=== PATIENT | male | born 1945 ===

== ENCOUNTER 2018-08-30 05:43 | Emergency (ER) | payer MEDICARE, BC ==
[~2018-08-30 05:43] MED LIST: ASP325 PO; ESOM20CA31 PO; LOR7.5/325 PO; METXR500 PO; TAM4 PO; VALS1TAB96 PO
--- NOTE | 2018-08-30 05:47 | ER Report ---
History and Physical Time Seen By MD: 05:45 (SATHYA WEISS DO) HPI/ROS CHIEF COMPLAINT: Dizzy HISTORY OF PRESENT ILLNESS: 73-year-old male brought in by private auto after ambulance responded to his brother's house. Patient's visiting from [place]. Patient's passed the 29th of last month. He has a history diabetes, hypertension, previous stroke, multiple joint replacements secondary to arthritis. Patient retired to bed feeling fine. Around 9:30 with some nausea. He woke up at 3 AM, grossly dizzy, falling into a closet headfirst. Patient reports no injury. Patient states he went to make coffee and ran into the wall, numerous times walking to the kitchen. He is complaining of pain of his left scapula and rating down his left arm. He has some numbness and tingling. Patient's type II diabetic on oral agent. Metformin 500 mg once daily. Patient reports his eyelids feel heavy. He feels like he wants to fall sleep. REVIEW OF SYSTEMS: Respiratory: No cough, no dyspnea. Cardiovascular: As above Gastrointestinal: No vomiting, no abdominal pain. Musculoskeletal: No back pain. (SATHYA WEISS DO) Allergies: Coded Allergies: No Known Drug Allergies (Verified , 08/30/18) Home Meds Reported Medications Metoprolol Tartrate (METOPROLOL TARTRATE) 25 Mg Tablet, PO QDAY, TAB 08/30/18 Tizanidine Hcl (TIZANIDINE HCL) 4 Mg Tablet, 4 MG PO QDAY 08/30/18 Pravastatin Sodium (PRAVASTATIN SODIUM) 10 Mg Tablet, PO QDAY 08/30/18 Metformin Hcl (Metformin Er) 500 Mg Tab.sr.24h, 500 MG PO DAILY, 0 Refills 07/08/09 Esomeprazole Mag Trihydrate (Nexium) 20 Mg Capsule.dr, 40 MG PO QDAY, 0 Refills 07/08/09 Discontinued Reported Medications Acetaminophen/Hydrocodone (Lortab 7.5/325 Mg) 7.5 Mg/325 Mg Tab, 1 - 2 TAB PO Q4H PRN, #40 0 Refills 07/13/09 Aspirin (Aspirin) 325 Mg Tab, 325 MG PO DAILY, 0 Refills 07/08/09 Valsartan/Hydrochlorothiazide (Diovan Hct 160-12.5 Mg Tab) 1 Tab Tablet, 1 TAB PO DAILY, 0 Refills 07/08/09 Tamsulosin Hcl (Flomax) 0.4 Mg Cap, 0.4 MG PO QDAY, 0 Refills 07/08/09 Past Medical/Surgical History Hyperlipidemia on, hypertension, previous CVA, type II diabetes on metformin, arthritis, status post multiple joint replacements, back surgery, pituitary adenoma removal (SATHYA WEISS DO) Reviewed Nurses Notes: Yes Old Medical Records Reviewed: Yes (SATHYA WEISS DO) Hx Smoking: Yes (X30 YRS) (SATHYA WEISS DO) Constitutional Vital Sign - Last 24 Hours 08/30/18 08/30/18 08/30/18 08/30/18 05:51 05:58 06:00 06:13 Temp 97.9 Pulse 65 67 66 Resp 15 16 B/P (MAP) 154/94 163/90 (114) Pulse Ox 93 92 94 O2 Delivery Room Air 08/30/18 08/30/18 08/30/18 06:28 06:33 07:00 Pulse 67 64 Resp 20 15 B/P (MAP) 136/79 (98) Pulse Ox 94 93 (SOLEDAD KO MD) Physical Exam General Appearance: The patient is alert, has no immediate need for airway protection and no current signs of toxicity. Vital signs stable, afebrile, pulse ox normal HEENT: Pupils equal and round no injection. TMs normal, oropharynx without redness or exudate, no facial droop Respiratory: Chest is non tender, lungs are clear to auscultation. Cardiac: regular rate and rhythm, distant heart sounds, no murmur Gastrointestinal: Abdomen is soft and non tender, no masses, bowel sounds normal. Musculoskeletal: Neck: Neck is supple and non tender. No JVD, no bruits Extremities have full range of motion and are non tender. No edema, no calf tenderness Skin: No rashes or lesions. Neuro: DIFFERENTIAL DIAGNOSIS: After history and physical exam differential diagnosis was considered for [ ] (SATHYA WEISS DO) Medical Decision Making Data Points Result Diagram: 08/30/1860108/30/18601 Laboratory Hematology Test 08/30/18 06:02 08/30/18 07:50 Red Blood Count 4.97 M/uL (4.00-5.60) Mean Corpuscular Volume 92.5 fL (80.0-96.0) Mean Corpuscular Hemoglobin 31.6 pg (26.0-33.0) Mean Corpuscular Hemoglobin Concent 34.2 g/dL (32.0-36.0) Red Cell Distribution Width 13.5 % (11.5-14.5) Mean Platelet Volume 7.6 fL (7.2-11.1) Neutrophils (%) (Auto) 51.9 % (39.4-72.5) Lymphocytes (%) (Auto) 35.5 % (17.6-49.6) Monocytes (%) (Auto) 7.1 % (4.1-12.4) Eosinophils (%) (Auto) 4.0 % (0.4-6.7) Basophils (%) (Auto) 1.5 % (0.3-1.4) Nucleated RBC Relative Count (auto) 0.1 /100WBC Neutrophils # (Auto) 2.3 K/uL (2.0-7.4) Lymphocytes # (Auto) 1.6 K/uL (1.3-3.6) Monocytes # (Auto) 0.3 K/uL (0.3-1.0) Eosinophils # (Auto) 0.2 K/uL (0.0-0.5) Basophils # (Auto) 0.1 K/uL (0.0-0.1) Nucleated RBC Absolute Count (auto) 0.00 K/uL Prothrombin Time 12.1 seconds (12.0-14.4) Prothromb Time International Ratio 0.90 Activated Partial Thromboplast Time 30 seconds (23-35) D-Dimer Quantitative (PE/DVT) 0.33 ug/ml (0-0.50) Sodium Level 139 mmol/L (137-145) Potassium Level 3.6 mmol/L (3.5-5.0) Chloride Level 99 mmol/L (98-107) Carbon Dioxide Level 30 mmol/L (22-30) Blood Urea Nitrogen 20 mg/dl (9-21) Creatinine 1.00 mg/dl (0.66-1.25) Glomerular Filtration Rate Calc > 60.0 Random Glucose 174 mg/dl (75-110) Calcium Level 9.1 mg/dl (8.4-10.2) Total Bilirubin 0.4 mg/dl (0.2-1.3) Aspartate Amino Transf (AST/SGOT) 33 U/L (0-35) Alanine Aminotransferase (ALT/SGPT) 42 U/L (0-56) Alkaline Phosphatase 88 U/L (0-126) Troponin I < 0.012 ng/ml B-Type Natriuretic Peptide 51 pg/ml (0-100) Total Protein 7.3 g/dl (6.3-8.2) Albumin 4.0 g/dl (3.5-5.0) Urine Color Yellow Urine Clarity Clear Urine pH 6.0 pH (4.8-9.5) Urine Specific Cushing 1.014 Urine Protein Negative mg/dL (NEGATIVE) Urine Glucose (UA) 50 mg/dL (NEGATIVE) Urine Ketones Negative mg/dL (NEGATIVE) Urine Blood Small (NEGATIVE) Urine Nitrite Negative (NEGATIVE) Urine Bilirubin Negative (NEGATIVE) Urine Urobilinogen Negative mg/dL (0.2-1.9) Urine Leukocyte Esterase Negative (NEGATIVE) Urine RBC 1 /HPF (0-2/HPF) Urine WBC 1 /HPF (0-5/HPF) Urine Squamous Epithelial Cells None /LPF (</=FEW) Urine Bacteria Negative /HPF (NONE-FEW) Urine Mucus Few /HPF (NONE-FEW) Chemistry Test 08/30/18 06:02 08/30/18 07:50 White Blood Count 4.5 k/uL (4.5-11.0) Red Blood Count 4.97 M/uL (4.00-5.60) Hemoglobin 15.7 g/dL (14.0-18.0) Hematocrit 46.0 % (42.0-52.0) Mean Corpuscular Volume 92.5 fL (80.0-96.0) Mean Corpuscular Hemoglobin 31.6 pg (26.0-33.0) Mean Corpuscular Hemoglobin Concent 34.2 g/dL (32.0-36.0) Red Cell Distribution Width 13.5 % (11.5-14.5) Platelet Count 180 K/uL (150-450) Mean Platelet Volume 7.6 fL (7.2-11.1) Neutrophils (%) (Auto) 51.9 % (39.4-72.5) Lymphocytes (%) (Auto) 35.5 % (17.6-49.6) Monocytes (%) (Auto) 7.1 % (4.1-12.4) Eosinophils (%) (Auto) 4.0 % (0.4-6.7) Basophils (%) (Auto) 1.5 % (0.3-1.4) Nucleated RBC Relative Count (auto) 0.1 /100WBC Neutrophils # (Auto) 2.3 K/uL (2.0-7.4) Lymphocytes # (Auto) 1.6 K/uL (1.3-3.6) Monocytes # (Auto) 0.3 K/uL (0.3-1.0) Eosinophils # (Auto) 0.2 K/uL (0.0-0.5) Basophils # (Auto) 0.1 K/uL (0.0-0.1) Nucleated RBC Absolute Count (auto) 0.00 K/uL Prothrombin Time 12.1 seconds (12.0-14.4) Prothromb Time International Ratio 0.90 Activated Partial Thromboplast Time 30 seconds (23-35) D-Dimer Quantitative (PE/DVT) 0.33 ug/ml (0-0.50) Glomerular Filtration Rate Calc > 60.0 Calcium Level 9.1 mg/dl (8.4-10.2) Total Bilirubin 0.4 mg/dl (0.2-1.3) Aspartate Amino Transf (AST/SGOT) 33 U/L (0-35) Alanine Aminotransferase (ALT/SGPT) 42 U/L (0-56) Alkaline Phosphatase 88 U/L (0-126) Troponin I < 0.012 ng/ml B-Type Natriuretic Peptide 51 pg/ml (0-100) Total Protein 7.3 g/dl (6.3-8.2) Albumin 4.0 g/dl (3.5-5.0) Urine Color Yellow Urine Clarity Clear Urine pH 6.0 pH (4.8-9.5) Urine Specific Cushing 1.014 Urine Protein Negative mg/dL (NEGATIVE) Urine Glucose (UA) 50 mg/dL (NEGATIVE) Urine Ketones Negative mg/dL (NEGATIVE) Urine Blood Small (NEGATIVE) Urine Nitrite Negative (NEGATIVE) Urine Bilirubin Negative (NEGATIVE) Urine Urobilinogen Negative mg/dL (0.2-1.9) Urine Leukocyte Esterase Negative (NEGATIVE) Urine RBC 1 /HPF (0-2/HPF) Urine WBC 1 /HPF (0-5/HPF) Urine Squamous Epithelial Cells None /LPF (</=FEW) Urine Bacteria Negative /HPF (NONE-FEW) Urine Mucus Few /HPF (NONE-FEW) Coagulation Test 08/30/18 06:02 Prothrombin Time 12.1 seconds Prothromb Time International Ratio 0.90 Activated Partial Thromboplast Time 30 seconds D-Dimer Quantitative (PE/DVT) 0.33 ug/ml Urinalysis Test 08/30/18 07:50 Urine Color Yellow Urine Clarity Clear Urine pH 6.0 pH (4.8-9.5) Urine Specific Cushing 1.014 Urine Protein Negative mg/dL (NEGATIVE) Urine Glucose (UA) 50 mg/dL (NEGATIVE) Urine Ketones Negative mg/dL (NEGATIVE) Urine Blood Small (NEGATIVE) Urine Nitrite Negative (NEGATIVE) Urine Bilirubin Negative (NEGATIVE) Urine Urobilinogen Negative mg/dL (0.2-1.9) Urine Leukocyte Esterase Negative (NEGATIVE) Urine RBC 1 /HPF (0-2/HPF) Urine WBC 1 /HPF (0-5/HPF) Urine Squamous Epithelial Cells None /LPF (</=FEW) Urine Bacteria Negative /HPF (NONE-FEW) Urine Mucus Few /HPF (NONE-FEW) (SOLDEAD KO MD) EKG/Imaging EKG Interpretation 12 lead EK Rhythm: normal sinus rhythm with first-degree AV block and occasional premature ventricular complex Brandon: normal QRS: normal, old inferior Q waves in V3 ST segments: normal, no acute ischemic changes, no old EKGs for comparison Imaging X-ray: Single view portable chest x-ray was obtained. I viewed the images myself on the PACS system. My interpretation of the images is: No infiltrate, no effusion, normal mediastinum. The radiologist interpretation had no clinically significant variation from this interpretation. Results: CT scan of the head without contrast was obtained. The results of the study are HEAD W/O CONTRAST HISTORY: Dizzy. COMPARISON: None. TECHNIQUE: Axial images were obtained from the skull base to the vertex without contrast. Sagittal and coronal reformats were performed. One of the following dose optimization techniques was utilized in the performance of this exam: Automated exposure control; adjustment of the mA and/or kV according to the patient's size; or use of an iterative reconstruction technique. Specific details can be referenced in the facility's radiology CT exam operational policy. CONTRAST: None. FINDINGS: Brain: No intracranial hemorrhage, mass, or edema. There is periventricular and subcortical white matter low attenuation that is nonspecific, but most likely reflects chronic microvascular ischemic change, mild in severity. There is mild calcification of the internal carotid arteries. Ventricles and sulci: Sulci are prominent, compatible with mild atrophy, normal for age. There is compensatory dilation of the ventricles. Osseous structures: Intact. There is mild degenerative change of the temporomandibular joints. Paranasal sinuses and mastoids: There is mild mucosal thickening of the maxillary and ethmoid sinuses bilaterally. There is mild mucosal thickening and hyperostosis of the sphenoid sinus. Mastoids are clear. Rightward nasal septal deviation. The internal auditory canals and the inner ear structures have a normal appearance. Orbits and soft tissues: Normal. IMPRESSION: 1. No acute intracranial abnormality. The study was read by the radiologist. I viewed the images myself on the PACS system. (SATHYA WEISS DO) ED Course/Re-evaluation Clinical Indication for ER IV: IV Access ED Course Patient was admitted to an examination room. H&P was done. The differential diagnoses was considered. On clinical examination the patient has a nonfocal neurologic examination except he has an unsteady gait. Diagnostic evaluation is undertaken. CT scan of the head was pending care was turned over to Dr. Ko Decision to Disposition Date: Aug 30, 2018 Decision to Disposition Time: 06:26 (SATHYA WEISS DO) Decision to Disposition Date: Aug 30, 2018 Decision to Disposition Time: 09:44 (SOLEDAD KO MD) Depart Departure Latest Vital Signs Vital Signs Date Time Temp Pulse Resp B/P (MAP) Pulse Ox O2 Delivery O2 Flow Rate FiO2 08/30/18 07:00 136/79 (98) 08/30/18 06:33 64 15 93 08/30/18 05:51 97.9 Room Air (SOLEDAD KO MD) Impression: Primary Impression: Lightheaded Additional Impression: Dehydration Condition: Improved Disposition: HOME OR SELF-CARE Patient Instructions: Dehydration (ED), Lightheadedness (ED) Problem Qualifiers SATHYA WEISS DO Aug 30, 2018 05:46 SOLEDAD KO MD Aug 30, 2018 09:43
[2018-08-30] MEDS ORDERED: ASPIRIN 81 MG CHEW PO ONE (05:55)
[2018-08-30] MEDS ORDERED: METO25TA93 PO (06:09)
[2018-08-30] MEDS ORDERED: TIZA-128 PO (06:09)
[2018-08-30] MEDS ORDERED: PRAV10TA46 PO (06:09)
[2018-08-30 06:15] LABS: PLATELET COUNT, AUTOMATED 180 K/uL (150-450)
--- NOTE | 2018-08-30 06:23 | RADIOLOGY IMAGING REPORT ---
FACILITY: [facility] [place] PATIENT NAME: Bell Barba : 1945 MR: [id number] V: [id number] EXAM DATE: ORDERING PHYSICIAN: SATHYA WEISS TECHNOLOGIST: Location: [facility] [place] Patient: Bell Barba : 1945 Visit/Account:[id number] Date of Sevice: 08/30/2018 CHEST SINGLE AP 08/30/2018 05:53 hours. HISTORY: Dizzy. Chest pain. History of myocardial infarct. COMPARISON: None. TECHNIQUE: Portable AP view of the chest. FINDINGS: Tubes/lines/hardware: None. Pulmonary: Lungs are clear. There is no pneumothorax or pleural effusion. There is mild left hemidiap hragm elevation. Cardiomediastinal: Cardiac and mediastinal silhouettes are within normal limits. Bones/soft tissues: No acute osseous abnormality. The visible abdomen is normal. IMPRESSION: 1. No acute cardiopulmonary process. Report Dictated By: Fiorella Moran at 08/30/2018 6:19 AM Report E-Signed By: Fiorella Moran at 08/30/2018 6:20 AM WSN:[id number]
[2018-08-30 06:28] LABS: INR 0.9
--- NOTE | 2018-08-30 06:29 | EKG ---
FACILITY: [facility] [place] PATIENT NAME: KRISTOPHER CARL : [id number] MR: [id number] V: [id number] EXAM DATE: ORDERING PHYSICIAN: SATHYA WEISS TECHNOLOGIST: WYATT Test Reason : DIZZY Blood Pressure : / mmHG Vent. Rate : 069 BPM Atrial Rate : 069 BPM P-R Int : 212 ms QRS Dur : 078 ms QT Int : 390 ms P-R-T Axes : -13 011 062 degrees QTc Int : 417 ms Sinus rhythm with 1st degree AV block with occasional premature ventricular complexes Nonspecific ST findings diffusely No previous ECGs available Confirmed by ISABELLA CLEARY ([id number]) on 08/30/2018 3:10:07 PM Referred By: ABHISHEK Confirmed By:ISABELLA CLEARY
--- NOTE | 2018-08-30 07:09 | RADIOLOGY IMAGING REPORT ---
FACILITY: [facility] PATIENT NAME: Bell Barba : 1945 MR: [id number] V: [id number] EXAM DATE: ORDERING PHYSICIAN: SATHYA WEISS TECHNOLOGIST: Location: [facility] [place] Patient: Bell Barba : 1945 Visit/Account:[id number] Date of Sevice: 08/30/2018 HEAD W/O CONTRAST HISTORY: Dizzy. COMPARISON: None. TECHNIQUE: Axial images were obtained from the skull base to the vertex without contrast. Sagittal an d coronal reformats were performed. One of the following dose optimization techniques was utilized in the performance of this exam: Autom ated exposure control; adjustment of the mA and/or kV according to the patient's size; or use of an i terative reconstruction technique. Specific details can be referenced in the facility's radiology CT exam operational policy. CONTRAST: None. FINDINGS: Brain: No intracranial hemorrhage, mass, or edema. There is periventricular and subcortical white mat ter low attenuation that is nonspecific, but most likely reflects chronic microvascular ischemic khan ge, mild in severity. There is mild calcification of the internal carotid arteries. Ventricles and sulci: Sulci are prominent, compatible with mild atrophy, normal for age. There is com pensatory dilation of the ventricles. Osseous structures: Intact. There is mild degenerative change of the temporomandibular joints. Paranasal sinuses and mastoids: There is mild mucosal thickening of the maxillary and ethmoid sinuses bilaterally. There is mild mucosal thickening and hyperostosis of the sphenoid sinus. Mastoids are c lear. Rightward nasal septal deviation. The internal auditory canals and the inner ear structures hav e a normal appearance. Orbits and soft tissues: Normal. IMPRESSION: 1. No acute intracranial abnormality. Report Dictated By: Fiorella Moran at 08/30/2018 6:59 AM Report E-Signed By: Fiorlela Moran at 08/30/2018 7:04 AM WSN:[id number]
[2018-08-30] MEDS ORDERED: DIAZEPAM 2 MG TAB PO ONE (07:45)
[2018-08-30] MEDS ORDERED: NS(*) 0.9% 1000 ML BAG 1,000 ML IV ONE (07:45)
[2018-08-30 10:02] VITALS: BP 159/90
== END 2018-08-30 10:13 | disposition home or self-care (01) ==
LOC: ER 06:41
DX: E86.0 Dehydration (principal); R42 Dizziness and giddiness; E11.9 Type 2 diabetes mellitus without complications; W18.30XA Fall on same level, unspecified, initial encounter; E78.5 Hyperlipidemia, unspecified; I10 Essential (primary) hypertension; Z86.73 Personal history of transient ischemic attack (TIA), and cerebral infarction without residual deficits
CPT/HCPCS: 70450; 71045; 81001; 83880; 84484; 85025; 85379; 85610; 85730; 93005; 96360; 99284; A9270; J7030; 82040; 82247; 82310; 82374; 82435; 82565; 82947; 84075; 84132; 84155; 84295; 84450; 84460; 84520